=== PATIENT | female | born 1990 | race Caucasian/White ===

== ENCOUNTER 2021-06-05 15:05 | Emergency (ER) | payer OTHER ==
[~2021-06-05] VITALS: Ht 162.6 cm; Wt 56.2 kg
[2021-06-05] MEDS ORDERED: DICYCLOMINE HCL 10 MG/5 ML ML PO ONE (15:30)
[2021-06-05] MEDS ORDERED: MAG/ALUM/SIMETH 30 ML UDCUP PO ONE (15:30)
[2021-06-05] MEDS ORDERED: LIDOCAINE HCL 2% VISCOUS 15 ML UDCUP PO ONE (15:30)
[2021-06-05] MEDS ORDERED: ACETAMINOPHEN 500 MG TABLET PO ONE (15:30)
[2021-06-05 15:31] LABS: APPEARANCE,URINE Cloudy (CLEAR); BILIRUBIN,URINE Negative (NEGATIVE); COLOR,URINE Yellow (YELLOW); GLUCOSE, URINE (UA) Negative (NEGATIVE); KETONES,URINE Negative (NEGATIVE); LEUKOCYTE ESTERASE ,URINE Trace (NEGATIVE); NITRATE,URINE Negative (NEGATIVE); OCCULT BLOOD,URINE Negative (NEGATIVE); PH,URINE 8.5 (5.0-8.0); PROTEIN,URINE POS 1+ mg/dL (NEGATIVE)
[2021-06-05 15:35] LABS: HCG,QUAL RESULT NEGATIVE (NEGATIVE)
[2021-06-05 15:43] LABS: BACTERIA,URINE Few /HPF (None Seen); RBC,URINE 0-1 /HPF (0-1)
[2021-06-05 15:44] LABS: MUCUS,URINE Few LPF (None Seen); SQUAMOUS EPITHELIAL CELL,UR Moderate /HPF (0-2)
[2021-06-05] MEDS ORDERED: LIDOCAINE HCL-MPF 1% 2ML VIAL ONE (15:59)
[2021-06-05] MEDS ORDERED: CEFTRIAXONE 1G VIAL IM ONE (16:00)
[2021-06-05] MEDS ORDERED: CEPH500B PO (16:52)
[2021-06-05 17:30] VITALS: BP 135/74
== END 2021-06-05 17:31 | disposition home or self-care (01) ==
LOC: EDH 15:05
DX: N39.0 Urinary tract infection, site not specified (principal); Z20.822 Contact with and (suspected) exposure to COVID-19
CPT/HCPCS: 71045; 81001; 81025; 87088; 87635; 87804 ×2; 96372; 99284; C9803; J0696; J3490

== ENCOUNTER → 2022-12-01 | Outpatient (CLI) | payer BC ==
[~2022-12-01] MED LIST: CEPH500B PO; NAPR-1180 PO
== END | disposition home or self-care (01) ==
LOC: RAH 14:57
PROVIDERS: ATTEND Student in an Organized Health Care Education/Training Program
DX: S83.412A Sprain of medial collateral ligament of left knee, initial encounter (principal); M25.462 Effusion, left knee; M79.89 Other specified soft tissue disorders; X58.XXXA Exposure to other specified factors, initial encounter; Y93.89 Activity, other specified; Y92.89 Other specified places as the place of occurrence of the external cause; Y99.8 Other external cause status
CPT/HCPCS: 73721

== ENCOUNTER 2023-12-12 23:24 | Inpatient (IN) | payer BC ==
[~2023-12-12] VITALS: Ht 154.9 cm; Wt 59.0 kg
[2023-12-13] VITALS (25 sets, daily range): BP systolic 103–136; BP diastolic 56–77; PULSE 75–106; RESP 15–20; TEMP 97.9–99.2; O2SAT 98
[2023-12-13 00:01] LABS: BASOPHILS # (AUTO) 0.02 K/uL (0.00-0.20); BASOPHILS % (AUTO) 0.2 % (0.0-5.0); EOSINOPHILS # (AUTO) 0.03 K/uL (0.00-0.70); EOSINOPHILS % (AUTO) 0.3 % (0.0-8.0); HEMATOCRIT 34.9 % (36-48); IMMATURE GRANULOCYTE ABSOLUTE 0.04 K/uL (0-1); LYMPHOCYTES # (AUTO) 1.9 K/uL (1.0-4.8); LYMPHOCYTES % (AUTO) 16.9 % (21.0-51.0); MEAN CORPUSCULAR HEMOGLOBIN 31.8 pg (27.0-33.0); MEAN CORPUSCULAR HGB CONC 34.7 g/dL (32.0-36.0); MEAN CORPUSCULAR VOLUME 91.8 fL (79-99); MONOCYTES # (AUTO) 0.6 K/uL (0.1-1.0); MONOCYTES % (AUTO) 5.5 % (3.0-13.0); NEUTROPHILS # (AUTO) 8.6 K/uL (1.8-7.7); NEUTROPHILS % (AUTO) 76.7 % (40.0-77.0); PLATELET COUNT (AUTO) 230 K/uL (130-400); RED CELL DISTRIBUTION WIDTH 11.9 % (11.0-15.5); WHITE BLOOD COUNT (AUTO) 11.2 K/uL (4.8-10.8)
[2023-12-13 00:11] LABS: CREATININE 0.7 mg/dL (0.5-1.0); POTASSIUM 3.3 mmol/L (3.5-5.1)
[2023-12-13 00:14] LABS: ALBUMIN 3.5 g/dL (3.5-5.0); BILIRUBIN,DIRECT 0.1 mg/dL (0.0-0.3); BILIRUBIN,TOTAL 0.2 mg/dL (0.2-1.0); TOTAL PROTEIN, SERUM 6.8 g/dL (6.0-8.3)
[2023-12-13] MEDS: ondanSETRON 4MG INJ IVP ONE (00:21)
[2023-12-13] MEDS: 0.9%NACL 1000ML 1,000 ML IV ONE (00:21)
[2023-12-13] MEDS: morPHINE 4 MG SYG IVP ONE (00:21)
[2023-12-13 02:21] LABS: APPEARANCE,URINE CLEAR (CLEAR); BILIRUBIN,URINE NEGATIVE (NEGATIVE); COLOR,URINE LIGHT-YELLOW (YELLOW); GLUCOSE, URINE (UA) NEGATIVE (NEGATIVE); KETONES,URINE 60 mg/dL (NEGATIVE); LEUKOCYTE ESTERASE ,URINE 250 Leu/uL (NEGATIVE); NITRATE,URINE NEGATIVE (NEGATIVE); OCCULT BLOOD,URINE LARGE (NEGATIVE); PROTEIN,URINE NEGATIVE (NEGATIVE); UROBILINOGEN,URINE 0.2 mg/dL (0.2-1.0)
[2023-12-13 02:23] LABS: ADD UA MICROSCOPIC YES
[2023-12-13 02:26] LABS: BACTERIA,URINE RARE /HPF (None Seen); RBC,URINE TNTC /HPF (0-1); SQUAMOUS EPITHELIAL CELL,UR FEW /HPF (0-2)
[2023-12-13] MEDS: cefTRIAXone 1G VIAL IVPB ONE (02:35)
[2023-12-13] MEDS ORDERED: LACTATED RINGERS 1000ML 1,000 ML IV SCH (06:00)
[2023-12-13 06:23] LABS: HEMATOCRIT 29.2 % (36-48); MEAN CORPUSCULAR HEMOGLOBIN 31.6 pg (27.0-33.0); MEAN CORPUSCULAR HGB CONC 34.6 g/dL (32.0-36.0); MEAN CORPUSCULAR VOLUME 91.3 fL (79-99); RED BLOOD CELL COUNT(AUTO) 3.2 MIL/uL (4.00-5.50); RED CELL DISTRIBUTION WIDTH 11.9 % (11.0-15.5); WHITE BLOOD COUNT (AUTO) 15.5 K/uL (4.8-10.8)
[2023-12-13 09:13] LABS: HEMATOCRIT 28.5 % (36-48); MEAN CORPUSCULAR HEMOGLOBIN 31.1 pg (27.0-33.0); MEAN CORPUSCULAR HGB CONC 33.7 g/dL (32.0-36.0); MEAN CORPUSCULAR VOLUME 92.2 fL (79-99); RED BLOOD CELL COUNT(AUTO) 3.09 MIL/uL (4.00-5.50); RED CELL DISTRIBUTION WIDTH 11.9 % (11.0-15.5)
[2023-12-13] MEDS ORDERED: SUCCINYLCHOLINE CHLORIDE 20 MG/ML 10 ML VIAL ONE (09:48)
[2023-12-13] MEDS ORDERED: LIDOCAINE PF 100MG/5ML (2%) SYRINGE 5ML ONE (09:48)
[2023-12-13] MEDS ORDERED: proPOFol 10 MG/ML 20ML VIAL IV ONE (09:50)
[2023-12-13] MEDS ORDERED: FENTanyl CITRate PF 50 MCG/1 ML 2ML VIAL ONE ×2 (09:51→11:02)
[2023-12-13] MEDS ORDERED: rocuRONium bROMide 10MG/1ML 5ML VL ONE (09:51)
[2023-12-13] MEDS ORDERED: MIDAZOLAM HCL 1 MG/ML 2ML VIAL ONE (09:51)
[2023-12-13] MEDS ORDERED: NEOSTIGMINE METHYLSULFATE 1MG/ML IV ONE (09:55)
[2023-12-13] MEDS ORDERED: GLYCOPYRROLATE 0.2 MG/ML 5 ML VIAL ONE (09:55)
[2023-12-13] MEDS ORDERED: phenylEPHRINE HCL 10 MG/ML 1ML VIAL IV ONE (09:55)
[2023-12-13] MEDS ORDERED: dexaMETHasone SOD PHOSPHATE 10MG/ML 1ML VIAL ONE (09:55)
[2023-12-13] MEDS ORDERED: ondanSETRON 4MG INJ ONE (09:55)
[2023-12-13] MEDS ORDERED: BUPIvacaine/PF 0.25% 30ML VIAL IJ ONE (10:09)
[2023-12-13] MEDS ORDERED: ALBUMIN (HUMAN) 5% 250 ML IV ONE (10:23)
[2023-12-13] MEDS: BUPIvacaine/PF 0.25% 30ML VIAL IJ ONE (10:34)
[2023-12-13] MEDS: FENTanyl CITRate PF 50 MCG/1 ML 2ML VIAL ONE (12:06)
[2023-12-13] MEDS: MEPERIDINE-PF 25 MG/ML SYG ONE (12:14)
[2023-12-13] MEDS ORDERED: acetaMINOPHEN WITH coDEINE 1 TAB TAB PO PRN (15:00)
[2023-12-13] MEDS ORDERED: ibuPROFEN 600 MG TABLET PO PRN (15:00)
== END 2023-12-13 17:10 | disposition home or self-care (01) | DRG 819 ==
LOC: EDH 23:24 → EDHIP 12-13 05:00 → WSH 12-13 05:01
PROVIDERS: ADMIT Obstetrics & Gynecology; ATTEND Obstetrics & Gynecology
PROC: 10T28ZZ Resection of Products of Conception, Ectopic, Via Natural or Artificial Opening Endoscopic (ICD-10-PCS; principal; 2023-12-13 10:00)
PROC: 0UB68ZZ Excision of Left Fallopian Tube, Via Natural or Artificial Opening Endoscopic (ICD-10-PCS; 2023-12-13 10:00)
PROC: 0UB08ZZ Excision of Right Ovary, Via Natural or Artificial Opening Endoscopic (ICD-10-PCS; 2023-12-13 10:00)
DX: O00.102 Left tubal pregnancy without intrauterine pregnancy (principal); N83.201 Unspecified ovarian cyst, right side
CPT/HCPCS: 36415; 76801; 80048; 80076; 81001; 83690; 84702; 84703; 85025; 85027; 86850; 86900; 86901; 86923; 87086; 96374; 96375; A4351; A4606; G0378; J0330; J0696; J1100; J2003; J2175; J2250; J2270; J2371; J2405; J2704; J2710; J3010; J3490; J7030; J7040; P9045; A4215; A4216; A4222; A4223; A4510; A4600; A4649; C1769; J0665